=== PATIENT | male | born 1990 | race Asian ===

== ENCOUNTER 2023-12-06 20:23 | Emergency (ER) | payer BC | END 2023-12-06 21:15 | disposition left against medical advice (07) | LOC: CSHERS 20:23 | DX: Z53.21 Procedure and treatment not carried out due to patient leaving prior to being seen by health care provider (principal) ==

== ENCOUNTER 2023-12-09 13:22 | Emergency (ER) | payer BC ==
[2023-12-09] MEDS ORDERED: Proparacaine 0.5% Opth 15 ML BOT ONE (14:49)
[2023-12-09] MEDS ORDERED: AcetaZOLAMIDE 250 MG TAB PO SCH (16:00)
== END 2023-12-09 16:33 | disposition home or self-care (01) ==
LOC: CSHERS 13:22
DX: H40.212 Acute angle-closure glaucoma, left eye (principal); H52.12 Myopia, left eye; Z55.6 Problems related to health literacy; Z75.3 Unavailability and inaccessibility of health-care facilities
CPT/HCPCS: 99283